=== PATIENT | female | born 1980 | race American Indian/Alaskan Native ===

== ENCOUNTER 2022-03-21 10:15 | Emergency (ER) | payer MEDICAID ==
[2022-03-21 10:32] VITALS: BP 129/83
--- NOTE | 2022-03-21 14:25 | Emergency Department Report ---
- General Chief Complaint: Upper Respiratory Infection Stated Complaint: COLD Source: patient Mode of arrival: Ambulatory Limitations: No Limitations - History of Present Illness Initial Comments: 41-year-old female presents to the ED complaining of cough, headache, nasal congestion x6 days. Patient states that she took a at home COVID test that was negative. She states she has been taking [id number] medication without any relief. Daughter is being evaluated for the same complaint. Patient denies any chest pain shortness of breath at present time. Patient is alert and oriented x3. No acute distress noted. No ill appearance noted. MD Complaint: fever, cough, sore throat, nasal congestion, sinus pain Onset/Timin -: days(s) - Related Data Previous Rx's Medication Instructions Recorded Last Taken Type Amoxicillin/K Clav Tab [Augmentin 1 tab PO Q12HR 10 Days #20 tab 03/21/22 Unknown Rx 875 mg] Brompheniramine/Pseudoephed/Dm 5 ml PO BID 5 Days #118 ml 03/21/22 Unknown Rx [Bromfed Dm Cough Syrup] Ibuprofen [Motrin] 600 mg PO Q8H PRN 15 Days #30 03/21/22 Unknown Rx tablet predniSONE [Deltasone] 50 mg PO QDAY 5 Days #5 tab 03/21/22 Unknown Rx Allergies Allergy/AdvReac Type Severity Reaction Status Date / Time No Known Allergies Allergy Verified 03/21/22 10:32 ED Review of Systems ROS: Stated complaint: COLD Other details as noted in HPI Constitutional: denies: chills, fever Eyes: denies: eye pain, eye discharge, vision change ENT: denies: ear pain, throat pain Respiratory: cough. denies: shortness of breath, wheezing Cardiovascular: denies: chest pain, palpitations Endocrine: no symptoms reported Gastrointestinal: denies: abdominal pain, nausea, diarrhea Genitourinary: denies: urgency, dysuria, discharge Musculoskeletal: denies: back pain, joint swelling, arthralgia Skin: denies: rash, lesions Neurological: denies: headache, weakness, paresthesias Psychiatric: denies: anxiety, depression Hematological/Lymphatic: denies: easy bleeding, easy bruising ED Past Medical Hx - Past Medical History Previous Medical History?: No - Surgical History Past Surgical History?: No - Social History Smoking Status: Current Every Day Smoker Substance Use Type: None - Medications Home Medications: Home Medications Medication Instructions Recorded Confirmed Last Taken Type Amoxicillin/K Clav Tab [Augmentin 1 tab PO Q12HR 10 Days #20 tab 03/21/22 Unknown Rx 875 mg] Brompheniramine/Pseudoephed/Dm 5 ml PO BID 5 Days #118 ml 03/21/22 Unknown Rx [Bromfed Dm Cough Syrup] Ibuprofen [Motrin] 600 mg PO Q8H PRN 15 Days #30 03/21/22 Unknown Rx tablet predniSONE [Deltasone] 50 mg PO QDAY 5 Days #5 tab 03/21/22 Unknown Rx ED Physical Exam - General Limitations: No Limitations General appearance: alert, in no apparent distress - Head Head exam: Present: atraumatic, normocephalic - Eye Eye exam: Present: normal appearance - ENT ENT exam: Present: mucous membranes moist - Neck Neck exam: Present: normal inspection - Respiratory Respiratory exam: Present: normal lung sounds bilaterally. Absent: respiratory distress - Cardiovascular Cardiovascular Exam: Present: regular rate, normal rhythm. Absent: systolic murmur, diastolic murmur, rubs, gallop - GI/Abdominal GI/Abdominal exam: Present: soft, normal bowel sounds - Extremities Exam Extremities exam: Present: normal inspection - Back Exam Back exam: Present: normal inspection - Neurological Exam Neurological exam: Present: alert, oriented X3 - Psychiatric Psychiatric exam: Present: normal affect, normal mood - Skin Skin exam: Present: warm, dry, intact, normal color. Absent: rash ED Course Vital Signs 03/21/22 10:30 Temperature 99.2 F Pulse Rate 109 H Respiratory 18 Rate Blood Pressure 129/83 [Left] O2 Sat by Pulse 99 Oximetry ED Medical Decision Making - Medical Decision Making 41-year-old female presents to the ED complaining of cough, headache, nasal congestion x6 days. Patient states that she took a at home COVID test that was negative. She states she has been taking [id number] medication without any relief. Daughter is being evaluated for the same complaint. Patient denies any chest pain shortness of breath at present time. Patient is alert and oriented x3. No acute distress noted. No ill appearance noted. Physical examination patient tenderness noted to the frontal cavity, postnasal drip no corry, and nasal congestion with nasal turbinate swollen. Rechecked the patient is resting quietly , comfortable and feeling better. I discussed the results of diagnostic study, my clinical impression and the plan for further treatment with the patient. Patient agrees with plan and discharge at this present time. All question addressed. I have given the patient instruction regarding a diagnosis ,expectation ,follow- up and return precaution. I explained to the patient that emergent condition may arise and to return to the ED for new worsen and any new persisting condition. I have explained the importance of following up with the primary care physician or referral physician listed below has instructed. The patient verbalized understanding of discharge instruction. Critical care attestation.: If time is entered above; I have spent that time in minutes in the direct care of this critically ill patient, excluding procedure time. ED Disposition Clinical Impression: Acute sinusitis Qualifiers: Sinusitis location: frontal Recurrence: non-recurrent Qualified Code(s): J01.10 - Acute frontal sinusitis, unspecified Disposition: HOME / SELF CARE / HOMELESS Is pt being admited?: No Does the pt Need Aspirin: No Condition: Stable Instructions: Sinusitis, Adult, [id number] Additional Instructions: Take medication as prescribed Return to the ED for any worsening symptom Prescriptions: Amoxicillin/K Clav Tab [Augmentin 875 mg] 1 tab PO Q12HR 10 Days #20 tab Brompheniramine/Pseudoephed/Dm [Bromfed Dm Cough Syrup] 5 ml PO BID 5 Days #118 ml predniSONE [Deltasone] 50 mg PO QDAY 5 Days #5 tab Ibuprofen [Motrin] 600 mg PO Q8H PRN 15 Days #30 tablet PRN Reason: Pain Referrals: PRIMARY MD HIRAL [Primary Care Provider] - 3-5 Days FRANCISCA JEAN MD [Staff Physician] - 3-5 Days Forms: Work/School Release Form(ED) Time of Disposition: 14:29
== END 2022-03-21 15:33 | disposition home or self-care (01) ==
LOC: ED 10:15
DX: J01.90 Acute sinusitis, unspecified (principal); F17.200 Nicotine dependence, unspecified, uncomplicated
CPT/HCPCS: 99282